=== PATIENT | female | born 1960 | race Caucasian/White ===

== ENCOUNTER → 2016-06-20 | Outpatient (CLI) | payer OTHER ==
[~2016-06-20] MED LIST: HCTZ 25MG TAB25 MG PO; LEVOXYL0.025 MG PO; XANAX; ZOLOFT; [UNRECOGNIZED DRUG - REMARK]
== END ==
LOC: BHSO 13:57
DX: F33.41 Major depressive disorder, recurrent, in partial remission (principal)

== ENCOUNTER → 2016-06-29 | Outpatient (CLI) | payer OTHER | LOC: MC.RAD 14:32 | DX: Z12.31 Encounter for screening mammogram for malignant neoplasm of breast (principal) ==

== ENCOUNTER → 2016-12-14 | Outpatient (CLI) | payer OTHER | LOC: BHSO 14:37 | DX: F41.0 Panic disorder [episodic paroxysmal anxiety] (principal) ==

== ENCOUNTER → 2017-10-16 | Outpatient (CLI) | payer BC | LOC: MC.RAD 13:09 | DX: Z12.31 Encounter for screening mammogram for malignant neoplasm of breast (principal) ==

== ENCOUNTER → 2017-11-24 | Outpatient (CLI) | payer BC | LOC: BHSO 16:11 | DX: F33.0 Major depressive disorder, recurrent, mild (principal) | CPT/HCPCS: G0463 ==

== ENCOUNTER → 2018-01-18 | Outpatient (CLI) | payer BC | LOC: BHSO 13:59 | DX: F33.42 Major depressive disorder, recurrent, in full remission (principal) | CPT/HCPCS: G0463 ==

== ENCOUNTER → 2018-04-30 | Outpatient (CLI) | payer BC | LOC: BHSO 13:35 | DX: F41.1 Generalized anxiety disorder (principal) | CPT/HCPCS: G0463 ==

== ENCOUNTER → 2018-06-20 | Outpatient (CLI) | payer BC | LOC: BHSO 09:20 | DX: F33.1 Major depressive disorder, recurrent, moderate (principal) | CPT/HCPCS: G0463 ==

== ENCOUNTER → 2018-07-18 | Outpatient (CLI) | payer BC | LOC: BHSO 10:01 | DX: F33.1 Major depressive disorder, recurrent, moderate (principal) | CPT/HCPCS: G0463 ==

== ENCOUNTER → 2018-07-26 | Outpatient (CLI) | payer BC | LOC: BHSO 14:41 | DX: F33.41 Major depressive disorder, recurrent, in partial remission (principal) | CPT/HCPCS: G0463 ==

== ENCOUNTER → 2018-08-23 | Outpatient (CLI) | payer BC | LOC: BHSO 15:42 | DX: F33.1 Major depressive disorder, recurrent, moderate (principal) | CPT/HCPCS: G0463 ==

== ENCOUNTER → 2018-09-20 | Outpatient (CLI) | payer BC | LOC: BHSO 13:59 | DX: F33.41 Major depressive disorder, recurrent, in partial remission (principal) | CPT/HCPCS: G0463 ==

== ENCOUNTER → 2018-11-07 | Outpatient (CLI) | payer BC | LOC: MC.RAD 13:56 | DX: Z12.31 Encounter for screening mammogram for malignant neoplasm of breast (principal); N63.13 Unspecified lump in the right breast, lower outer quadrant ==

== ENCOUNTER → 2018-11-12 | Outpatient (CLI) | payer BC | LOC: MC.RAD 08:30 | DX: N63.10 Unspecified lump in the right breast, unspecified quadrant (principal) ==

== ENCOUNTER → 2018-11-22 | Outpatient (CLI) | payer BC | LOC: BHSO 14:15 | DX: F33.42 Major depressive disorder, recurrent, in full remission (principal) | CPT/HCPCS: G0463 ==

== ENCOUNTER → 2019-04-05 | Outpatient (CLI) | payer BC ==
[~2019-04-05] MED LIST changes: +COZAAR 50MG50 MG/TAB PO; -HCTZ 25MG TAB25 MG PO; -LEVOXYL0.025 MG PO; +MASON NATURAL2000 IU PO; +MELATONIN1 MG PO; +PEPCID 20MG TAB20 MG PO; +PROZAC 20MG20 MG PO; +SYNTHROID0.075 MG/T PO; +TAZTIA240 PO; +WELLBUTRIN 75MG75 MG PO; -XANAX; +XANAX 0.5MG0.5 MG PO; -ZOLOFT; -[UNRECOGNIZED DRUG - REMARK]
== END ==
LOC: BHSO 10:23
DX: F33.42 Major depressive disorder, recurrent, in full remission (principal)
CPT/HCPCS: G0463

== ENCOUNTER 2019-04-30 08:21 | Day surgery (SDC) | payer BC ==
[2005-08-19 07:55] VITALS: BP 120/74
[~2019-04-30] VITALS: Ht 167.6 cm; Wt 75.5 kg
[~2019-04-30 08:21] MED LIST changes: -COZAAR 50MG50 MG/TAB PO; -MASON NATURAL2000 IU PO; -MELATONIN1 MG PO; -PEPCID 20MG TAB20 MG PO
[2019-04-30] MEDS ORDERED: COZAAR 50MG50 MG/TAB PO (08:43)
[2019-04-30] MEDS ORDERED: MASON NATURAL2000 IU PO (08:44)
[2019-04-30] MEDS ORDERED: MELATONIN1 MG PO (08:45)
[2019-04-30 09:27] VITALS: BP 120/94; PULSE 92; TEMP 97.9
[2019-04-30 10:20] VITALS: BP 122/100; PULSE 80; TEMP 97.8
--- NOTE | 2019-04-30 10:20 | NUR ---
Patient arrives to [facility] [place] [address] via cart, accompanied by Endo ERNA Ibrahim. She is drowsy, but oriented. She ambulates with standby assist to the chair in the room. She denies any pain, nausea, or need. VSS and WNL on room air. She is offered and receives coffee and a muffin to eat. Call light in reach.
[2019-04-30] MEDS ORDERED: PEPCID 20MG TAB20 MG PO (10:21)
[2019-04-30 10:30] VITALS: BP 111/85; PULSE 76
--- NOTE | 2019-04-30 10:36 | NUR ---
Dr. Crook at the bedside and talks with the patient.
[2019-04-30 10:45] VITALS: BP 124/91; PULSE 78
--- NOTE | 2019-04-30 11:10 | NUR ---
Patient has met discharge criteria. PIV is removed with catheter intact and hemostasis achieved. Discharge instructions are discussed. She denies any questions and verbalizes understanding. She is notified of follow-up appointment date/time and to picker packer a new prescription at her preferred pharmacy. She changes to her clothing independently. Her ride is called by staff. She is escorted to the exit via wheelchair and discharged to home with ride in private vehicle at 1110.
== END 2019-04-30 11:10 | disposition home or self-care (01) ==
LOC: SDCO 08:21
DX: Z12.11 Encounter for screening for malignant neoplasm of colon (principal); Z86.010 Personal history of colon polyps; Z80.0 Family history of malignant neoplasm of digestive organs; K64.0 First degree hemorrhoids; K21.9 Gastro-esophageal reflux disease without esophagitis; K44.9 Diaphragmatic hernia without obstruction or gangrene; I10 Essential (primary) hypertension; E03.9 Hypothyroidism, unspecified; F41.9 Anxiety disorder, unspecified
CPT/HCPCS: J2405; J2704; J3010; J7030

== ENCOUNTER → 2019-10-30 | Outpatient (CLI) | payer BC ==
[~2019-10-30] MED LIST changes: +COZAAR 50MG50 MG/TAB PO; +MASON NATURAL2000 IU PO; +MELATONIN1 MG PO; +PEPCID 20MG TAB20 MG PO
== END ==
LOC: BHSO 09:56
DX: F33.41 Major depressive disorder, recurrent, in partial remission (principal)
CPT/HCPCS: G0463

== ENCOUNTER → 2019-11-27 | Outpatient (CLI) | payer BC | LOC: MC.RAD 10:53 | DX: Z12.31 Encounter for screening mammogram for malignant neoplasm of breast (principal) ==

== ENCOUNTER → 2019-12-17 | Outpatient (CLI) | payer BC | LOC: BHSO 13:59 | DX: F33.42 Major depressive disorder, recurrent, in full remission (principal) | CPT/HCPCS: G0463 ==

== ENCOUNTER → 2020-12-25 | Outpatient (CLI) | payer BC | LOC: MC.RAD 12:51 | DX: Z12.31 Encounter for screening mammogram for malignant neoplasm of breast (principal) ==

== ENCOUNTER 2021-11-03 01:22 | Observation (INO) | payer BC ==
[2021-11-03] VITALS (7 sets, daily range): BP systolic 109–123; BP diastolic 66–81; PULSE 59–96; TEMP 97.8–98.2
[~2021-11-03] VITALS: Wt 75.0 kg
[2021-11-03 02:04] LABS: BASO # 0.1 K/mm3 (0.0-0.2); BASO % 0.6 % (0.0-2.0); EOS # 0.2 K/mm3 (0.0-0.7); EOS % 1.4 % (0.0-4.0); GRAN # 9.2 K/mm3 (1.4-6.5); GRAN % 71.8 % (42.2-75.2); HEMATOCRIT 38.5 % (37.0-47.0); HEMOGLOBIN 12.6 g/dl (12.5-16.0); LYMPH # 2.2 K/mm3 (1.2-3.4); LYMPH % 17.3 % (20.0-51.0); MEAN CELL VOLUME 88 fl (80.0-100.0); MEAN CORPUSCULAR HEMOGLOBIN 29 pg (27-31); MEAN CORPUSCULAR HGB CONC 33 g/dl (33.0-37.0); MONO # 1.1 K/mm3 (0.1-0.6); MONO % 8.3 % (1.7-9.3); PLATELET COUNT 440 K/mm3 (130-400); RED BLOOD COUNT 4.36 M/mm3 (4.10-5.30)
[2021-11-03 02:25] LABS: BILIRUBIN,TOTAL 0.3 mg/dL (0.2-1.2); CALCIUM 9.4 mg/dL (8.4-10.2); CREATININE, serum 0.84 mg/dL (0.57-1.11); POTASSIUM 3.9 mmol/L (3.5-4.5); TOTAL PROTEIN 7.5 gm/dL (6.2-8.1)
[2021-11-03 02:30] LABS: TROPONIN-I 0.021 ng/mL (0.00-0.033)
[2021-11-03 03:25] LABS: COLLECTION METHOD CLEAN CATCH
[2021-11-03 03:37] LABS: PH 6 (5-8); SQUAMOUS EPITHELIAL None Seen /hpf (0-10); URINE APPEARANCE Clear (CLEAR/HAZY); URINE BACTERIA None Seen /hpf (NONE SEEN); URINE COLOR Yellow (YELLOW); URINE GLUCOSE Negative (NEGATIVE); URINE KETONE Negative (NEGATIVE); URINE PROTEIN(semi-quant) Negative (NEGATIVE); URINE RBC 0-2 /hpf (0-2)
[2021-11-03 03:38] LABS: URINE BLOOD Negative (NEGATIVE); URINE NITRATE Negative (NEGATIVE); URINE UROBILINOGEN Negative (NEGATIVE)
--- NOTE | 2021-11-03 11:36 | NUR ---
1135 PT LEFT UNIT FOR SURGERY.
[2021-11-03] MEDS ORDERED: NORCO 325 MG-51 TAB PO (13:09)
--- NOTE | 2021-11-03 16:30 | NUR ---
1600 PT DRINKING WATER AND EATING CRACKERS. AMBULATORY TO RESTROOM INDEPENDENTLY. PT GIVEN A SANDWICH AND WAS TOLD CAN DC AFTER EATING. PT AGREED AND HAS RIDE LINED UP.
== END 2021-11-03 17:20 | disposition home or self-care (01) ==
LOC: COL.ER 01:22 → OB 06:14
PROVIDERS: Personal Emergency Response Attendant; ADMIT Surgery
DX: K80.12 Calculus of gallbladder with acute and chronic cholecystitis without obstruction (principal); Z87.891 Personal history of nicotine dependence; Z86.16 Personal history of COVID-19
CPT/HCPCS: C9113; J0295; J0690; J1100; J1885; J2405; J2704; J3010; J3480; J7030; Q9967

== ENCOUNTER → 2022-01-11 | Outpatient (CLI) | payer BC ==
[~2022-01-11] MED LIST changes: +NORCO 325 MG-51 TAB PO
== END ==
LOC: MC.RAD 11:13
DX: Z12.31 Encounter for screening mammogram for malignant neoplasm of breast (principal)